=== PATIENT | male | born 1945 | race Caucasian/White ===

== ENCOUNTER 2017-07-31 19:46 | Emergency (ER) | payer MEDICARE, OTHER ==
[~2017-07-31] VITALS: Ht 172.7 cm; Wt 86.7 kg
[2017-07-31] MEDS ORDERED: ASPIRIN 81 MG TABLET CHEW ONE (20:18)
[2017-07-31] MEDS ORDERED: METOPROLOL 1 MG/ML, 5ML ONE (20:18)
[2017-07-31] MEDS ORDERED: POTA15TA9 PO (20:21)
[2017-07-31] MEDS ORDERED: ATOR40TA78 PO (20:21)
[2017-07-31] MEDS ORDERED: ATEN50TA41 PO (20:21)
[2017-07-31] MEDS ORDERED: LOSA50TA6 PO (20:21)
[2017-07-31] MEDS ORDERED: ALLO300T PO (20:21)
[2017-07-31] MEDS ORDERED: SODIUM CHLORIDE FLUSH 10ML SYR IVF ONE (20:30)
[2017-07-31] MEDS ORDERED: SODIUM CHLORIDE 0.9% 1,000ML IVBOLUS ONE (20:30)
[2017-07-31] MEDS ORDERED: ASPIRIN 81 MG TABLET CHEW PO ONE (20:30)
[2017-07-31] MEDS ORDERED: METOPROLOL 1 MG/ML, 5ML IVPush PRN (20:30)
[2017-07-31 20:44] LABS: BASOPHILS # (AUTO) 0.03 x10^3/uL (0-0.1); BASOPHILS % (AUTO) 0 % (0-1); EOSINOPHILS # (AUTO) 0.11 x10^3/uL (0-0.4); EOSINOPHILS % (AUTO) 1 % (1-7); LYMPHOCYTES # (AUTO) 1.64 x10^3/uL (1-3.4); LYMPHOCYTES % (AUTO) 19 % (22-44); MD NO; MEAN CORPUSCULAR HEMOGLOBIN 28.1 pg (27.5-34.5); MEAN CORPUSCULAR HGB CONC 33.5 g/dL (33.2-36.2); MEAN CORPUSCULAR VOLUME 83.8 fL (81-97); MEAN PLATELET VOLUME 10.8 fL (7.4-10.4); MONOCYTES # (AUTO) 0.65 x10^3/uL (0.2-0.8); MONOCYTES % (AUTO) 7 % (2-9); NEUTROPHILS # (AUTO) 6.41 x10^3/uL (1.8-6.8); NEUTROPHILS % (AUTO) 73 % (42-75); PLATELET COUNT 143 x10^3/uL (130-400); RED BLOOD COUNT 6.05 x10^6/uL (4.38-5.82); RED CELL DISTRIBUTION WIDTH 14.6 % (9.4-14.8)
[2017-07-31 20:56] LABS: ALANINE AMINOTRANSFERASE 32 U/L (12-78); ALBUMIN 3.9 g/dL (3.4-5.0); ANION GAP 9 mmol/L (5-15); CALCIUM 8.7 mg/dL (8.5-10.1); CHLORIDE 106 mmol/L (98-107)
[2017-07-31 21:00] LABS: ALKALINE PHOSPHATASE 67 U/L (45-117); BILIRUBIN,TOTAL 0.7 mg/dL (0.2-1.0); TOTAL PROTEIN 7.2 g/dL (6.4-8.2); TROPONIN I < 0.015 ng/mL (0.000-0.045)
[2017-07-31] MEDS ORDERED: hydrALAzine 20 MG/ML, 1ML ONE (21:28)
[2017-07-31] MEDS ORDERED: hydrALAzine 20 MG/ML, 1ML IV ONE (21:30)
[2017-07-31 23:00] VITALS: BP 144/88
== END 2017-07-31 23:21 | disposition home or self-care (01) ==
LOC: ED 22:08
DX: N28.1 Cyst of kidney, acquired (principal); K82.4 Cholesterolosis of gallbladder; K85.00 Idiopathic acute pancreatitis without necrosis or infection; I10 Essential (primary) hypertension; E78.5 Hyperlipidemia, unspecified
CPT/HCPCS: 36415; 71045; 76700; 80053; 83690; 83880; 84478; 84484; 85025; 85379; 93005; 96361; 96374; 96375; 99285; J0360; J7030